=== PATIENT | female | born 1975 | race Caucasian/White ===

== ENCOUNTER 2019-06-25 08:26 | Emergency (ER) | payer BC ==
[2019-06-25] MEDS ORDERED: Sodium Chloride 0.9% 10 ML Syringe FLUSH PRN (08:56)
[2019-06-25] MEDS ORDERED: Sodium Chloride 0.9% 1,000 ML IV SCH (09:00)
[2019-06-25] MEDS ORDERED: Sodium Chloride 0.9% 10 ML Syringe FLUSH ONE ×2 (09:03→10:06)
[2019-06-25] MEDS ORDERED: Iopamidol 612 MG/ML 100 ML Bottle IVPUSH ONE (09:03)
[2019-06-25] MEDS ORDERED: Iopamidol 755 Mg/ML 100 ML Bottle IVPUSH ONE (10:06)
--- NOTE | 2019-06-25 10:12 | CT ---
CT neck Technique: Multiple axial sections through the neck were obtained. Intravenous contrast was utilized. Reconstructed coronal and sagittal images were reviewed. Comparison: No prior CT neck exam. Findings: Small retention cyst is felt to be present within the inferior left maxillary sinus measuring 1.0 cm. Parotid salivary gland appears within normal limits. Submandibular salivary glands appear within normal limits. Multiple low density nodules are noted within the right thyroid gland. Prior left sided thyroidectomy is noted. Normal enhancing vascular structures are noted. Parapharyngeal soft tissues are normal. No soft tissue edema is appreciated. Visualized upper mediastinal structures are within normal limits. Visualized lung apices show nothing acute. Small normal-sized lymph nodes are scattered within the neck. No additional abnormality is appreciated. Bone window settings show mild degenerative change scattered within the cervical spine. Prevertebral soft tissues and epiglottis are normal. Impression: 1. Small retention cyst within the left maxillary sinus. 2. Prior left sided thyroidectomy. Multiple low density nodules within the right lobe of the thyroid gland. 3. Mild degenerative change is scattered within the cervical spine. 4. No additional abnormality is appreciated. Diagnostic code #2 This report was dictated in [place] Standard Time
[2019-06-25] MEDS ORDERED: Sodium Chloride 0.9% 100 ML IV SCH (10:15)
--- NOTE | 2019-06-25 11:37 | CT ---
CT chest Technique: Multiple axial sections through the chest were obtained. Intravenous contrast was utilized. Study has been performed as a pulmonary antegrade protocol. Comparison: No prior chest CT study. Prior chest x-ray of 03/20/19. Findings: Pulmonary arteries are well-opacified. No filling defects are seen to indicate pulmonary embolism. No pericardial thickening is seen. Fatty infiltration is seen within the liver. Other visualized upper abdominal structures appear within normal limits. No mediastinal adenopathy is seen. No axillary adenopathy is noted. Lungs are clear with no acute parenchymal change. No pleural effusions are noted. Bone window settings were reviewed. No acute osseous finding is appreciated. Aorta shows no aneurysm. Impression: 1. No findings of pulmonary embolism. 2. Fatty infiltration within the liver. 3. Nothing acute is appreciated on CT study of the chest. Diagnostic code #2 This report was dictated in [place] Standard Time
--- NOTE | 2019-06-25 11:38 | EDM.PDOC ---
ED HPI GENERAL MEDICAL PROBLEM - General Chief Complaint: Neck Problem Stated Complaint: NECK PAIN/SWOLLEN LYMPH NODE Time Seen by Provider: 06/25/19 08:48 Source of Information: Reports: Patient History Limitations: Reports: No Limitations - History of Present Illness INITIAL COMMENTS - FREE TEXT/NARRATIVE: The patient presents with neck pain, chest pain and shortness of breath. The neck pain has been going on for about 2 months. She feels that her lymph nodes are swollen. She had a thyroid lobectomy a few years ago. She has the right side and there is nodules. She gets her thyroid checked yearly and it has been fine. She also had some palpitations earlier this morning. She also had some chest pain and shortness of breath. She has no fever or chills. She has no abdominal pain, nausea or vomiting. She has no diarrhea or dysuria. She has no numbness or weakness. She has been working out more and getting up early. She has no sore throat. She says at times she has trouble swallowing. Onset: Gradual Duration: Week(s): Location: Reports: Neck Quality: Reports: Ache Severity: Moderate Improves with: Reports: None Worsens with: Reports: None Associated Symptoms: Reports: Chest Pain, Shortness of Breath. Denies: Cough, Fever/Chills, Headaches, Nausea/Vomiting Chest Pain Score (Numeric/FACES): 3 - Related Data Allergies Allergy/AdvReac Type Severity Reaction Status Date / Time No Known Allergies Allergy Verified 06/25/19 08:39 Home Meds: Home Meds Vit with Ca/FA/Iron [ Plus Iron] 1 tab PO DAILY 03/04/14 [ History] Ibuprofen 200 - 800 mg PO Q6H #50 tablet 04/04/14 [Rx] Escitalopram Oxalate 5 mg PO DAILY 11/03/15 [History] LORazepam 0.5 mg PO TID PRN 11/03/15 [History] Past Medical History HEENT History: Reports: Impaired Vision Other HEENT History: wears eyeglasses. 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 extremities upper and lower as well as face. monitored with yearly CT. 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 - Past Surgical History GI Surgical History: Reports: Appendectomy Female Surgical History: Reports: Hysterectomy Endocrine Surgical History: Reports: Other (See Below) Other Endocrine Surgeries/Procedures: partial thyroidectomy Neurological Surgical History: Reports: Lumbar Spine Musculoskeletal Surgical History: Reports: Other (See Below) Other Musculoskeletal Surgeries/Procedures:: back surgery, fusion. Social & Family History - Tobacco Use Smoking Status *Q: Never Smoker Second Hand Smoke Exposure: No - Caffeine Use Caffeine Use: Reports: Coffee - Recreational Drug Use Recreational Drug Use: No ED ROS GENERAL - Review of Systems Review Of Systems: See Below Constitutional: Reports: No Symptoms HEENT: Reports: No Symptoms Respiratory: Reports: Shortness of Breath Cardiovascular: Reports: Chest Pain Endocrine: Reports: No Symptoms GI/Abdominal: Reports: No Symptoms : Reports: No Symptoms Musculoskeletal: Reports: Neck Pain Skin: Reports: No Symptoms Neurological: Reports: No Symptoms ED EXAM, UPPER BACK/NECK PAIN - Physical Exam Exam: See Below Exam Limited By: No Limitations General Appearance: Alert, No Apparent Distress Ears Exam: Normal External Exam Nose Exam: Normal Inspection Throat/Mouth Exam: Normal Inspection Neck Exam: Tenderness (on the right side no lymphadenopathy) Cardiovascular/Respiratory: Regular Rate, Rhythm, No M/R/G, Normal Breath Sounds , No Respiratory Distress GI/Abdominal: Soft, Non-Tender, No Organomegaly Back Exam: Normal Inspection Extremities: Normal Inspection EKG INTERPRETATION EKG Date: 06/25/19 Time: 09:02 Rhythm: NSR Rate (Beats/Min): 93 [place]: Normal P-Wave: Present QRS: Normal ST-T: Normal QT: Normal Course - Vital Signs Last Recorded V/S: Last Vital Signs Temp 98.4 F 06/25/19 08:40 Pulse 106 H 06/25/19 08:40 Resp 20 06/25/19 08:40 BP 165/98 H 06/25/19 08:40 Pulse Ox 97 06/25/19 08:40 - Orders/Labs/Meds Orders: Active Orders 24 hr Category Date Time Status Cardiac Monitoring [RC] . DIRECTED Care 06/25/19 08:56 Active EKG Documentation Completion [RC] STAT Care 06/25/19 08:57 Active Holter Monitor 48 Hours [RC] .PRN Care 06/25/19 12:19 Ordered Peripheral IV Care [RC] . DIRECTED Care 06/25/19 08:57 Active THYROXINE (T4) [REF] Stat Lab 06/25/19 09:00 Received Sodium Chloride 0.9% [Normal Saline] 1,000 ml Med 06/25/19 09:00 Active IV ASDIRECTED Sodium Chloride 0.9% [Normal Saline] 100 ml Med 06/25/19 10:15 Active IV ASDIRECTED Sodium Chloride 0.9% [Saline Flush] Med 06/25/19 08:56 Active 10 ml FLUSH ASDIRECTED PRN Peripheral IV Insertion Adult [OM.PC] Stat Oth 06/25/19 08:56 Ordered Medication Orders Sodium Chloride (Normal Saline) 1,000 mls @ 125 mls/hr IV ASDIRECTED MIA Last Admin: 06/25/19 09:24 Dose: 125 mls/hr Sodium Chloride (Normal Saline) 100 mls @ 60 mls/hr IV ASDIRECTED MIA Last Admin: 06/25/19 10:07 Dose: 60 mls/hr Sodium Chloride (Saline Flush) 10 ml FLUSH ASDIRECTED PRN PRN Reason: Keep Vein Open Last Admin: 06/25/19 09:23 Dose: 10 ml Labs: Laboratory Tests 06/25/19 06/25/19 06/25/19 Range/Units 09:00 09:00 09:00 WBC 7.70 (3.98-10.04) K/mm3 RBC 5.27 H (3.98-5.22) M/mm3 Hgb 15.0 (11.2-15.7) gm/dl Hct 44.9 (34.1-44.9) % MCV 85.2 (79.4-94.8) fl MCH 28.5 (25.6-32.2) pg MCHC 33.4 (32.2-35.5) g/dl RDW Std Deviation 39.1 (36.4-46.3) fL Plt Count 378 H (182-369) K/mm3 MPV 9.6 (9.4-12.3) fl Neut % (Auto) 62.1 (34.0-71.1) % Lymph % (Auto) 28.1 (19.3-51.7) % Luna % (Auto) 7.1 (4.7-12.5) % Eos % (Auto) 1.8 (0.7-5.8) Baso % (Auto) 0.5 (0.1-1.2) % Neut # (Auto) 4.78 (1.56-6.13) K/mm3 Lymph # (Auto) 2.16 (1.18-3.74) K/mm3 Luna # (Auto) 0.55 H (0.24-0.36) K/mm3 Eos # (Auto) 0.14 (0.04-0.36) K/mm3 Baso # (Auto) 0.04 (0.01-0.08) K/mm3 D-Dimer, Quantitative 0.77 H (0.19-0.50) mg/L Sodium 140 (136-145) mEq/L Potassium 4.2 (3.5-5.1) mEq/L Chloride 104 (98-107) mEq/L Carbon Dioxide 23 (21-32) mEq/L Anion Gap 17.2 H (5-15) BUN 8 (7-18) mg/dL Creatinine 0.8 (0.55-1.02) mg/dL Est Cr Clr Drug Dosing 96.03 mL/min Estimated GFR (MDRD) > 60 (>60) mL/min BUN/Creatinine Ratio 10.0 L (14-18) Glucose 123 H (74-106) mg/dL Calcium 9.2 (8.5-10.1) mg/dL Total Bilirubin 0.4 (0.2-1.0) mg/dL AST 44 H (15-37) U/L ALT 63 H (14-59) U/L Alkaline Phosphatase 117 H (46-116) U/L Troponin I < 0.017 (0.00-0.056) ng/mL Total Protein 7.9 (6.4-8.2) g/dl Albumin 3.9 (3.4-5.0) g/dl Globulin 4.0 gm/dL Albumin/Globulin Ratio 1.0 (1-2) TSH 3rd Generation 2.290 (0.358-3.74) uIU/mL Monoscreen (NEGATIVE) 06/25/19 Range/Units 09:00 WBC (3.98-10.04) K/mm3 RBC (3.98-5.22) M/mm3 Hgb (11.2-15.7) gm/dl Hct (34.1-44.9) % MCV (79.4-94.8) fl MCH (25.6-32.2) pg MCHC (32.2-35.5) g/dl RDW Std Deviation (36.4-46.3) fL Plt Count (182-369) K/mm3 MPV (9.4-12.3) fl Neut % (Auto) (34.0-71.1) % Lymph % (Auto) (19.3-51.7) % Luna % (Auto) (4.7-12.5) % Eos % (Auto) (0.7-5.8) Baso % (Auto) (0.1-1.2) % Neut # (Auto) (1.56-6.13) K/mm3 Lymph # (Auto) (1.18-3.74) K/mm3 Luna # (Auto) (0.24-0.36) K/mm3 Eos # (Auto) (0.04-0.36) K/mm3 Baso # (Auto) (0.01-0.08) K/mm3 D-Dimer, Quantitative (0.19-0.50) mg/L Sodium (136-145) mEq/L Potassium (3.5-5.1) mEq/L Chloride (98-107) mEq/L Carbon Dioxide (21-32) mEq/L Anion Gap (5-15) BUN (7-18) mg/dL Creatinine (0.55-1.02) mg/dL Est Cr Clr Drug Dosing mL/min Estimated GFR (MDRD) (>60) mL/min BUN/Creatinine Ratio (14-18) Glucose (74-106) mg/dL Calcium (8.5-10.1) mg/dL Total Bilirubin (0.2-1.0) mg/dL AST (15-37) U/L ALT (14-59) U/L Alkaline Phosphatase (46-116) U/L Troponin I (0.00-0.056) ng/mL Total Protein (6.4-8.2) g/dl Albumin (3.4-5.0) g/dl Globulin gm/dL Albumin/Globulin Ratio (1-2) TSH 3rd Generation (0.358-3.74) uIU/mL Monoscreen Negative (NEGATIVE) Meds: Medications Generic Name Dose Route Start Last Admin Trade Name Freq PRN Reason Stop Dose Admin Sodium Chloride 1,000 mls @ 125 mls/hr 06/25/19 09:00 06/25/19 09:24 Normal Saline IV 125 mls/hr ASDIRECTED MIA Administration Sodium Chloride 100 mls @ 60 mls/hr 06/25/19 10:15 06/25/19 10:07 Normal Saline IV 60 mls/hr ASDIRECTED MIA Administration Sodium Chloride 10 ml 06/25/19 08:56 06/25/19 09:23 Saline Flush FLUSH 10 ml ASDIRECTED PRN Administration Keep Vein Open Discontinued Medications Generic Name Dose Route Start Last Admin Trade Name Freq PRN Reason Stop Dose Admin Iopamidol 100 ml 06/25/19 09:03 06/25/19 09:16 Isovue-300 (61%) IVPUSH 06/25/19 09:04 100 ml ONETIME ONE Administration Iopamidol 100 ml 06/25/19 10:06 06/25/19 10:06 Isovue-370 (76%) IVPUSH 06/25/19 10:07 100 ml ONETIME ONE Administration Sodium Chloride 10 ml 06/25/19 09:03 06/25/19 09:16 Saline Flush FLUSH 06/25/19 09:04 10 ml ONETIME ONE Administration Sodium Chloride 10 ml 06/25/19 10:06 06/25/19 10:06 Saline Flush FLUSH 06/25/19 10:07 10 ml ONETIME ONE Administration - Re-Assessments/Exams Free Text/Narrative Re-Assessment/Exam: 06/25/19 11:41 I ordered an IV, labs, EKG, CXR and a CT with contrast of her neck. Her EKG shows a NSR with no acute changes. Her CBC looks good. Her D-dimer is elevated at 0.77. I ordered a CT angio of her chest. Her anion gap is elevated at 17.2. Her glucose is elevated at 123. Her AST is elevated at 44. Her ALT is elevated at 63. Her alk phos is elevated 117. Her troponin is negative. Her TSH is negative. Her mono is negative. The CT of her neck shows small retention cyst within the left maxillary sinus. Prior left sided thyroidectomy. Multiple low density nodules within the right lobe of the thyroid gland. Mild degenerative change is scattered within the cervical spine. No additional abnormality is appreciated. The CT of her chest shows no findings of pulmonary embolism. Fatty infiltration within the liver. Nothing acute is appreciated on CT study of the chest. 06/25/19 12:21 She feels better but I still do not have an answer for why she felt this way. I have ordered a holter monitor and she is following up with Cyndie Garcia next week. Departure - Departure Time of Disposition: 12:30 Disposition: Home, Self-Care 01 Condition: Good Clinical Impression: Neck pain, Palpitations, Atypical chest pain, Shortness of breath - Discharge Information *PRESCRIPTION DRUG MONITORING PROGRAM REVIEWED*: Not Applicable *COPY OF PRESCRIPTION DRUG MONITORING REPORT IN PATIENT DRAKE: Not Applicable Referrals: Cyndie Garcia, OYSTER HARVESTER [Primary Care Provider] - 1 Week Forms: ED Department Discharge Additional Instructions: Take a look at the ingredients of the supplement you are on. If there is a stimulant try avoid using it. Wear the holter monitor for 48 hours and follow up with Cyndie Garcia next week. Please return if you are worse. Sepsis Event Note - Evaluation Sepsis Screening Result: No Definite Risk - Focused Exam Vital Signs: Vital Signs Temp Pulse Resp BP Pulse Ox 06/25/19 08:40 98.4 F 106 H 20 165/98 H 97 Date Exam was Performed: 06/25/19 Time Exam was Performed: 12:20 - My Orders Last 24 Hours: My Active Orders 06/25/19 08:56 Cardiac Monitoring [RC] . DIRECTED Sodium Chloride 0.9% [Saline Flush] 10 ml FLUSH ASDIRECTED PRN Peripheral IV Insertion Adult [OM.PC] Stat 06/25/19 08:57 EKG Documentation Completion [RC] STAT Peripheral IV Care [RC] . DIRECTED 06/25/19 09:00 THYROXINE (T4) [REF] Stat Sodium Chloride 0.9% [Normal Saline] 1,000 ml IV ASDIRECTED 06/25/19 10:15 Sodium Chloride 0.9% [Normal Saline] 100 ml IV ASDIRECTED 06/25/19 12:19 Holter Monitor 48 Hours [RC] .PRN - Assessment/Plan Last 24 Hours: My Active Orders 06/25/19 08:56 Cardiac Monitoring [RC] . DIRECTED Sodium Chloride 0.9% [Saline Flush] 10 ml FLUSH ASDIRECTED PRN Peripheral IV Insertion Adult [OM.PC] Stat 06/25/19 08:57 EKG Documentation Completion [RC] STAT Peripheral IV Care [RC] . DIRECTED 06/25/19 09:00 THYROXINE (T4) [REF] Stat Sodium Chloride 0.9% [Normal Saline] 1,000 ml IV ASDIRECTED 06/25/19 10:15 Sodium Chloride 0.9% [Normal Saline] 100 ml IV ASDIRECTED 06/25/19 12:19 Holter Monitor 48 Hours [RC] .PRN
[2019-06-25 12:54] VITALS: BP 131/68; PULSE 84
== END 2019-06-25 12:50 | disposition home or self-care (01) ==
LOC: JD.ED 08:26
DX: M54.2 Cervicalgia (principal); R00.2 Palpitations; R07.89 Other chest pain; R06.02 Shortness of breath; F41.9 Anxiety disorder, unspecified; F32.9 Major depressive disorder, single episode, unspecified; E66.9 Obesity, unspecified; Z68.31 Body mass index [BMI] 31.0-31.9, adult; Z79.899 Other long term (current) drug therapy
CPT/HCPCS: 36415; 70491; 71275; 80053; 84436; 84443; 84484; 85025; 85379; 86308; 93005; 93225; 93226; 96360; 96361; 99285; J7030; J7050; Q9967

== ENCOUNTER 2022-02-28 18:42 | Emergency (ER) | payer BC ==
[2022-02-28 22:13] LABS: CORONAVIRUS COVID-19 NAA NEGATIVE (NEGATIVE)
[2022-03-01 01:26] VITALS: BP 157/98; PULSE 85
== END 2022-03-01 01:26 | disposition home or self-care (01) ==
LOC: JD.ED 18:42
DX: R03.0 Elevated blood-pressure reading, without diagnosis of hypertension (principal); E66.9 Obesity, unspecified; Z68.37 Body mass index [BMI] 37.0-37.9, adult; Z90.49 Acquired absence of other specified parts of digestive tract; Z20.822 Contact with and (suspected) exposure to COVID-19
CPT/HCPCS: 0240U; 36415; 71046; 83735; 83880; 85025; 85379; 86140; 93005; 99284

== ENCOUNTER 2022-03-27 10:00 | Emergency (ER) | payer BC ==
[2022-03-27] MEDS ORDERED: Metoprolol Tartrate 50 MG Tab PO ONE (10:41)
[2022-03-27] MEDS ORDERED: Acetaminophen 325 MG Tab PO ONE (12:30)
[2022-03-27 13:39] VITALS: BP 151/86; PULSE 77
== END 2022-03-27 13:38 | disposition home or self-care (01) ==
LOC: JD.ED 10:00
DX: I10 Essential (primary) hypertension (principal); R00.0 Tachycardia, unspecified; E66.9 Obesity, unspecified; Z68.36 Body mass index [BMI] 36.0-36.9, adult
CPT/HCPCS: 70450; 93005; 99285; A9270

== ENCOUNTER 2022-06-15 00:30 | Emergency (ER) | payer BC ==
[2022-06-15] MEDS ORDERED: Potassium Chloride 20 MEQ Tab.ER PO ONE (02:58)
[2022-06-15 03:55] VITALS: BP 138/83; PULSE 82
== END 2022-06-15 03:55 | disposition home or self-care (01) ==
LOC: JD.ED 00:30
DX: F41.9 Anxiety disorder, unspecified (principal); I44.0 Atrioventricular block, first degree; E66.9 Obesity, unspecified; Z68.38 Body mass index [BMI] 38.0-38.9, adult; Z79.899 Other long term (current) drug therapy
CPT/HCPCS: 36415; 36600; 71046; 80053; 81001; 81025; 82803; 83735; 83880; 84443; 84484; 85025; 85379; 85610; 85730; 93005; 99285; A9270; 93010; 99284

== ENCOUNTER 2023-01-11 13:06 | Emergency (ER) | payer BC ==
[2023-01-11] MEDS ORDERED: Sodium Chloride 0.9% 10 ML Syringe FLUSH PRN ×2 (13:31→14:00)
[2023-01-11 13:45] LABS: BASOPHILS ABSOLUTE AUTO 0.1 K/mm3 (0.0-0.2); BASOPHILS PERCENT AUTO 0.8 % (0.0-1.0); EOSINOPHILS ABSOLUTE AUTO 0.1 K/mm3 (0.0-0.4); EOSINOPHILS PERCENT AUTO 1.3 % (0.0-6.0); HEMATOCRIT 43.4 % (37.0-47.0); HEMOGLOBIN 14.9 gm/dl (12.0-16.0); IMMATURE GRAN ABSOLUTE AUTO 0.01 K/mm3 (0.00-0.05); IMMATURE GRAN PERCENT AUTO 0.2 % (0.0-0.4); LYMPHOCYTES ABSOLUTE AUTO 2.3 K/mm3 (1.0-4.8); LYMPHOCYTES PERCENT AUTO 37.3 % (24.0-44.0); MEAN CORPUSCULAR HGB CONC 34.3 g/dl (32.0-36.0); MEAN CORPUSCULAR VOLUME 84.4 fl (83.0-99.0); MEAN PLATELET VOLUME 9.7 fl (9.4-12.3); MONOCYTES ABSOLUTE AUTO 0.5 K/mm3 (0.0-0.8); MONOCYTES PERCENT AUTO 7.3 % (0.0-8.0); NEUTROPHILS ABSOLUTE AUTO 3.3 K/mm3 (1.8-7.7); NEUTROPHILS PERCENT AUTO 53.1 % (41.0-71.0); PLATELET COUNT,PLT 290 K/mm3 (150-400); RED BLOOD CELL COUNT 5.14 M/mm3 (4.10-5.30); WHITE BLOOD CELL COUNT,WBC 6.17 K/mm3 (3.9-11.3)
[2023-01-11] MEDS ORDERED: Iopamidol 612 MG/ML 30 ML SDV IV ONE (14:00)
[2023-01-11 14:07] LABS: A/G RATIO 0.9 (1-2); ALBUMIN 3.7 g/dl (3.4-5.0); ANION GAP 11.2 (5-15); BILIRUBIN TOTAL 0.6 mg/dL (0.2-1.0); BUN/CREATININE RATIO 17.5 (14-18); C-REACTIVE PROTEIN 0.4 mg/dL (<1.0); CALCIUM 9.1 mg/dL (8.5-10.1); CREATININE 0.8 mg/dL (0.55-1.02); POTASSIUM,K 3.2 mEq/L (3.5-5.1); PROTEIN TOTAL,TP 7.9 g/dl (6.4-8.2)
[2023-01-11 14:51] LABS: APPEARANCE,URINE CLEAR (Clear); BILIRUBIN,URINE NEGATIVE (Negative); COLOR,URINE YELLOW (Yellow); GLUCOSE,URINE NEGATIVE (Negative); KETONES,URINE NEGATIVE (Negative); LEUKOCYTE ESTERASE,URINE NEGATIVE (Negative); NITRITE,URINE NEGATIVE (Negative); OCCULT BLOOD,URINE NEGATIVE (Negative); PROTEIN,URINE NEGATIVE (Negative); UROBILINOGEN,URINE 0.2 (0.2-1.0)
[2023-01-11 15:23] VITALS: BP 142/88; PULSE 79
== END 2023-01-11 15:20 | disposition home or self-care (01) ==
LOC: JD.ED 13:06
DX: M54.6 Pain in thoracic spine (principal); I10 Essential (primary) hypertension; E66.9 Obesity, unspecified; Z79.899 Other long term (current) drug therapy; Z68.39 Body mass index [BMI] 39.0-39.9, adult
CPT/HCPCS: 36415; 74177; 80053; 81003; 85025; 86140; 99284; J3490; Q9967

== ENCOUNTER 2024-02-29 07:59 | Day surgery (SDC) | payer BC ==
[~2024-02-29 07:59] MED LIST: Sodium Chloride 0.9% 10 ML Syringe FLUSH PRN; Sodium Chloride 0.9% 10 ML Syringe FLUSH SCH
[2024-02-29] MEDS: Lactated Ringers 1,000 ML IV SCH (08:15)
[2024-02-29] MEDS ORDERED: fentaNYL 100 MCG/2 ML SDV ONE (09:59)
[2024-02-29] MEDS ORDERED: Propofol 200 MG/20 ML SDV ONE (09:59)
[2024-02-29] MEDS ORDERED: Lidocaine 2% 5 ML SDV ONE (10:00)
[2024-02-29 10:50] VITALS: BP 129/59; PULSE 75
== END 2024-02-29 11:15 | disposition home or self-care (01) ==
LOC: JD.SDS 07:59
PROVIDERS: ATTEND Surgery
DX: K29.50 Unspecified chronic gastritis without bleeding (principal); K31.89 Other diseases of stomach and duodenum; K21.9 Gastro-esophageal reflux disease without esophagitis; E11.9 Type 2 diabetes mellitus without complications; I10 Essential (primary) hypertension; E78.00 Pure hypercholesterolemia, unspecified; E66.9 Obesity, unspecified; F32.A Depression, unspecified; Z88.8 Allergy status to other drugs, medicaments and biological substances; Z79.899 Other long term (current) drug therapy; Z68.38 Body mass index [BMI] 38.0-38.9, adult
CPT/HCPCS: 00731; J2704; J3010; J3490; J7120

== ENCOUNTER 2024-08-14 01:20 | Emergency (ER) | payer BC ==
[2024-08-14] MEDS: Acetaminophen/HYDROcodone 325-5 MG Tab PO ONE (02:27)
[2024-08-14] MEDS: Cefdinir 300 MG Cap PO STA (02:27)
[2024-08-14 02:32] VITALS: BP 161/78; PULSE 81
== END 2024-08-14 02:31 | disposition home or self-care (01) ==
LOC: JD.ED 01:20
DX: H65.02 Acute serous otitis media, left ear (principal); I10 Essential (primary) hypertension; E66.9 Obesity, unspecified; Z79.899 Other long term (current) drug therapy; Z88.8 Allergy status to other drugs, medicaments and biological substances; Z90.49 Acquired absence of other specified parts of digestive tract; Z90.710 Acquired absence of both cervix and uterus; Z68.41 Body mass index [BMI] 40.0-44.9, adult
CPT/HCPCS: 99283; A9270-GY